=== PATIENT | female | born 2000 | race Caucasian/White ===

== ENCOUNTER 2024-07-03 13:46 | Emergency (ER) | payer BC, OTHER ==
[~2024-07-03] VITALS: Ht 175.3 cm; Wt 162.2 kg
[2024-07-03 13:54] VITALS: TEMP 98.2
[2024-07-03] MEDS: dexamethasone sod phosphate 10mg/ml inj PO STA (16:11)
[2024-07-03] MEDS: ketorolac trometh 30MG/ML vial 30 MG/ML VIAL IM ONE (16:11)
[2024-07-03 16:22] LABS: STREP A SCREEN NEGATIVE (Neg)
[2024-07-03] MEDS ORDERED: LIDO15SO9 PO (17:06)
[2024-07-03] MEDS ORDERED: AMOX-580 PO (17:06)
[2024-07-03 17:26] VITALS: BP 131/89; PULSE 60; RESP 18; O2SAT 99
== END 2024-07-03 17:25 | disposition home or self-care (01) ==
LOC: ER 13:48
DX: J03.90 Acute tonsillitis, unspecified (principal)
CPT/HCPCS: 87081; 87880; 96372; 99283; J1100; J1885